=== PATIENT | female | born 1990 | race Caucasian/White ===

== ENCOUNTER → 2016-07-06 | Outpatient (REF) ==
[~2016-07-06] MED LIST: BIRTH CONTROL PILLS; CIPRO 250MG TA250 MG PO; EC NAPROSYN500 MG PO; FEROSUL; KETOROLAC10 MG PO; PRILOSEC 20MG20 MG PO
== END ==
LOC: WSOH 13:10
DX: Z02.1 Encounter for pre-employment examination (principal)

== ENCOUNTER 2018-03-15 06:27 | Inpatient (IN) | payer BC ==
[~2018-03-15] VITALS: Ht 175.3 cm; Wt 105.5 kg
[2018-03-17] VITALS (46 sets, daily range): BP systolic 101–135; BP diastolic 57–94; PULSE 68–101; TEMP 97.7–99.3
[2018-03-17] MEDS ORDERED: PRIL40 PO (06:55)
[2018-03-17] MEDS ORDERED: SYNTHROID0.075 MG/T (06:55)
[2018-03-17] MEDS ORDERED: TUMS500 MG PO (06:57)
[2018-03-17] MEDS ORDERED: PRENATAL (06:57)
[2018-03-17] MEDS ORDERED: TYLENOL 500MG500 MG PO (06:57)
[2018-03-17] MEDS ORDERED: IRON TABLETS325 MG PO (06:58)
--- NOTE | 2018-03-17 07:10 | NUR ---
0710-40 Week G1 patient of Dr[address] Elizondo's ambulatory to unit for scheduled induction of labor. Spouse at side. Oriented to room Assisted into gown. Placed on EFM. Reactive FHR noted. VSS. IV to right hand. Blood collected and sent to lab. LR infusing. Assessment complete. Consents reviewed and signed. Updated on plan of care. 0748-Dr. Elizondo calls unit, see physician notification. SVE /-2. 0800-Pitocin started per protocol and MD order. Pitocin verification with ADIS Rodney. 0801-Patient up to bathroom, Voids 100ml clear yellow urine. Returns to bed WL.
[2018-03-17 08:13] LABS: BASO % 0.3 % (0.0-2.0); EOS # 0.1 (0.0-0.7); EOS % 0.7 % (0-4.0); GRAN # 5.2 (1.4-6.5); GRAN % 70.2 % (42.2-75.2); HEMATOCRIT 34.1 % (37.0-47.0); LYMPH # 1.4 (1.2-3.4); LYMPH % 18.4 % (20.0-51.0); MEAN CELL VOLUME 82 fl (80.0-100.0); MEAN CORPUSCULAR HEMOGLOBIN 26 pg (27.0-31.0); MEAN CORPUSCULAR HGB CONC 32 g/dl (33.0-37.0); MEAN PLATELET VOLUME 11.7 fl (7.4-10.4); MONO # 0.7 (0.1-0.6); MONO % 9.7 % (1.7-9.3); PLATELET COUNT 130 K/mm3 (130-400); RED BLOOD COUNT 4.16 M/mm3 (4.10-5.30); REDCELL DISTRIBUTION WIDTH-CV 19.2 % (11.5-14.5)
--- NOTE | 2018-03-17 09:30 | NUR ---
0930-Dr. Elizondo to unit, reviews FHR monitor. SVE by MD, difficulty checking cervix due to maternal discomfort. MD discusses plan of care and patients plan for pain management. Patient and MD agree to proceed with epidural before AROM. 0963-ALDAIR French notified of patients desire for epidural. IVF bolus started.
--- NOTE | 2018-03-17 10:00 | NUR ---
1000-Patient up to bathroom. Returns to bedside, sitts up for epidural placement. ALDAIR French to room. Epidural procedure discussed with SENIOR JAVA PROGRAMMER ANALYST. 1014-Single shot administered by ALDAIR French. VSS. RN remians at bedside frequently adjusting EFM. 1025-Repositioned WL. Updated on plan of care and safety. 1035-BP 101/57, maternal HR 86, asymptomatic. Repeat BP 99/56, HR 82 1043-Dr. Elizondo to room, SVE /0 AROM clear, Apple Care provided. Repositioned WL. Maternal BP 133/78, HR 86.
--- NOTE | 2018-03-17 11:00 | NUR ---
Guadalupe placed to DD, Clear yellow urine return. Apple care provided.
--- NOTE | 2018-03-17 15:50 | NUR ---
1550-SVE 7-8/100/+2, Moderate amount of bloody show. Repositioned LL with peanut ball. Difficulty tracing FHR, RN at bedside frequently readjusting EFM. 1604-Dr. white updated on SVE, see physician notification. 1615-Patient reports increased pressure, SVE 9-10/100/+2, cervix pushes passed head. Dr. White udpated, see physician notification. 1627-MD on unit. SVE complete +2 per MD coaches on pushing. 1630-MD begins pushing with patient through contraction. Patient moves vertex well. Audible FHR decel down to 110-115 with pushing. Difficulty tracing FHR, RN frequently readjusting EFM. Patient continues to push with MD through contractions. 1644-MD sets up for delivery. 1645-Spontaneous vaginal delivery of viable male attended by Dr. White. Infant to mothers abdoment. Cord clamped and cut by MD. Care of assumed by ADIS Christy. Apgars 8/9/9. 1648-Spontaneous delivery of intact placenta by MD. Fundal massage firm. Lochia WNL. EBL 300ml. Pitocin bolus per MD order and protocol. 2nd Degree perineal lac repaired by MD with 2-0. Apple care provided. Ice to perineum. Updated on plan of care and safety. VSS.
[2018-03-17] MEDS ORDERED: PERCOCET 325 MG1 TA2 PO (17:02)
[2018-03-17] MEDS ORDERED: MOTRIN 800800 MG/TAB PO (17:02)
--- NOTE | 2018-03-17 19:00 | NUR ---
0- PT ASSISTED TO BATHROOM, ABLE TO AMBULATE INDEPENDENTLY. PT ABLE TO VOID 400ML WITHOUT DIFFICULTY. PT PERFORMS PERICARE, CLEAN GOWN, PAD AND PANTIES PROVIDED. PT SLIGHTLY LIGHTHEADED SO TRANSFERRED TO WHEELCHAIR. 1929- PT TRANFERRED PER WHEELCHAIR TO ROOM 207, BELONGINGS WITH PT. PT ORIENTED TO ROOM AND CALL LIGHTS. PLAN OF CARE DISCUSSED AND QUESTIONS ANSWERED.
--- NOTE | 2018-03-17 20:15 | NUR ---
2015- PT NEEDING ASSISTANCE WITH AND HAS COMPANY AT BEDSIDE. WOULD LIKE TO WAIT FOR VITAL SIGNS UNTIL AFTER DONE NURSING. NURSE ASSISTS PT WITH LATCH AND PT WILL CALL OUT WHEN READY FOR VITAL SIGNS.
[2018-03-18 02:00] VITALS: BP 111/70; PULSE 94; TEMP 98.9
[2018-03-18 09:00] VITALS: BP 114/78; PULSE 90
--- NOTE | 2018-03-18 11:03 | NUR ---
Initial visit; Patient thanked weighter for looking in on her and offering congratulations and God's blessings for the of her son. Roller Presser Operator thanked patient for choosing [facility].
[2018-03-18 16:14] VITALS: BP 119/75; PULSE 105
[2018-03-19 07:30] VITALS: BP 111/63; PULSE 86; TEMP 98.2
== END 2018-03-19 12:00 | disposition home or self-care (01) | DRG 807 ==
LOC: LDR 03-17 06:23 → OB 03-17 19:30
PROVIDERS: ADMIT Obstetrics & Gynecology
PROC: 10E0XZZ Delivery of Products of Conception, External Approach (ICD-10-PCS; principal; 2018-03-17)
PROC: 0KQM0ZZ Repair Perineum Muscle, Open Approach (ICD-10-PCS; 2018-03-17)
PROC: 10907ZC Drainage of Amniotic Fluid, Therapeutic from Products of Conception, Via Natural or Artificial Opening (ICD-10-PCS; 2018-03-17)
PROC: 3E033VJ Introduction of Other Hormone into Peripheral Vein, Percutaneous Approach (ICD-10-PCS; 2018-03-17)
DX: O41.03X0 Oligohydramnios, third trimester, not applicable or unspecified (principal); Z37.0 Single live birth; Z3A.40 40 weeks gestation of pregnancy; O70.1 Second degree perineal laceration during delivery; O99.284 Endocrine, nutritional and metabolic diseases complicating childbirth; E03.9 Hypothyroidism, unspecified; K21.9 Gastro-esophageal reflux disease without esophagitis
CPT/HCPCS: J2590; J2795; J7120

== ENCOUNTER → 2020-04-22 | Outpatient (CLI) | payer BC ==
[~2020-04-22] MED LIST changes: +FLONASEALLERGY NS; +IRON TABLETS325 MG PO; +MOTRIN 800800 MG/TAB PO; +PERCOCET 325 MG1 TA2 PO; +PRENATAL; +PRIL40 PO; +SYNTHROID0.05 MG/TA PO; +SYNTHROID0.075 MG/T; +TUMS500 MG PO; +TYLENOL 500MG500 MG PO
== END ==
LOC: DIA.ED
DX: O24.419 Gestational diabetes mellitus in pregnancy, unspecified control (principal); E03.9 Hypothyroidism, unspecified
CPT/HCPCS: G0108

== ENCOUNTER → 2020-04-26 | Outpatient (CLI) | payer BC | LOC: DIA.ED 13:33 | DX: O24.419 Gestational diabetes mellitus in pregnancy, unspecified control (principal); E03.9 Hypothyroidism, unspecified | CPT/HCPCS: G0108 ==

== ENCOUNTER → 2020-05-12 | Outpatient (CLI) | payer BC | LOC: DIA.ED 13:29 | DX: O24.419 Gestational diabetes mellitus in pregnancy, unspecified control (principal) | CPT/HCPCS: G0108 ==

== ENCOUNTER 2020-06-24 06:14 | Inpatient (IN) | payer BC ==
[~2020-06-24] VITALS: Ht 177.8 cm; Wt 105.5 kg
[2020-06-24] VITALS (31 sets, daily range): BP systolic 84–128; BP diastolic 48–89; PULSE 69–108; TEMP 97.8–98.4
[~2020-06-24 06:14] MED LIST changes: -FLONASEALLERGY NS; -SYNTHROID0.05 MG/TA PO
[2020-06-24] MEDS ORDERED: SYNTHROID0.05 MG/TA PO (06:59)
[2020-06-24] MEDS ORDERED: FLONASEALLERGY NS (06:59)
[2020-06-24 07:11] LABS: BASO % 0.2 % (0.0-2.0); EOS # 0.1 (0.0-0.7); EOS % 0.7 % (0-4.0); GRAN # 5.8 (1.4-6.5); GRAN % 70.3 % (42.2-75.2); HEMOGLOBIN 11.4 g/dl (12.5-16.0); LYMPH # 1.6 (1.2-3.4); LYMPH % 18.8 % (20.0-51.0); MEAN CELL VOLUME 86 fl (80.0-100.0); MEAN CORPUSCULAR HEMOGLOBIN 28 pg (27.0-31.0); MEAN CORPUSCULAR HGB CONC 32 g/dl (33.0-37.0); MEAN PLATELET VOLUME 12.5 fl (7.4-10.4); MONO # 0.8 (0.1-0.6); MONO % 9.4 % (1.7-9.3); PLATELET COUNT 150 K/mm3 (130-400); RED BLOOD COUNT 4.08 M/mm3 (4.10-5.30); REDCELL DISTRIBUTION WIDTH-CV 15.8 % (11.5-14.5)
[2020-06-24 07:21] LABS: HEMATOCRIT 35.2 % (37.0-47.0)
[2020-06-25 02:00] VITALS: BP 110/62; PULSE 76; TEMP 98
[2020-06-25] MEDS ORDERED: MOTRIN 800800 MG/TAB PO (07:23)
[2020-06-25 09:00] VITALS: BP 103/54; PULSE 81; TEMP 98
== END 2020-06-25 17:45 | disposition home or self-care (01) | DRG 807 ==
LOC: LDR 06:14 → OB 10:48
PROVIDERS: ADMIT Obstetrics & Gynecology
PROC: 10E0XZZ Delivery of Products of Conception, External Approach (ICD-10-PCS; principal; 2020-06-24)
PROC: 0KQM0ZZ Repair Perineum Muscle, Open Approach (ICD-10-PCS; 2020-06-24)
PROC: 10907ZC Drainage of Amniotic Fluid, Therapeutic from Products of Conception, Via Natural or Artificial Opening (ICD-10-PCS; 2020-06-24)
PROC: 3E033VJ Introduction of Other Hormone into Peripheral Vein, Percutaneous Approach (ICD-10-PCS; 2020-06-24)
DX: O24.420 Gestational diabetes mellitus in childbirth, diet controlled (principal); Z37.0 Single live birth; O99.214 Obesity complicating childbirth; E66.9 Obesity, unspecified; O99.284 Endocrine, nutritional and metabolic diseases complicating childbirth; O99.02 Anemia complicating childbirth; D64.9 Anemia, unspecified; Z3A.39 39 weeks gestation of pregnancy; E03.9 Hypothyroidism, unspecified
CPT/HCPCS: J2590; J7120

== ENCOUNTER 2023-05-10 10:19 | Inpatient (IN) | payer BC ==
[~2023-05-10] VITALS: Ht 175.3 cm; Wt 109.1 kg
[2023-05-10] VITALS (20 sets, daily range): BP systolic 102–135; BP diastolic 54–88; PULSE 70–95; TEMP 98–98.2
[~2023-05-10 10:19] MED LIST changes: +FLONASEALLERGY NS; +SYNTHROID0.05 MG/TA PO
[2023-05-10] MEDS ORDERED: LR & Oxytocin 500 ML IV SCH (10:30)
[2023-05-10] MEDS ORDERED: LR 1,000 ML IV SCH (10:30)
--- NOTE | 2023-05-10 11:18 | NUR ---
1118 DELPHINE RUGGIERO UPDATED ON PT ARRIVAL, ADMISSION, FHTS REACTIVE, CTX PATTERN, ATTEMPTED SVE BUT RN NOT ABLE TO REACH CERVIX. ORDERS GIVEN TO START PITOCIN AT THIS TIME 2 X 2 X 15. RN ELINAVO
[2023-05-10 11:36] LABS: BASO % 0.3 % (0.0-2.0); EOS % 0.5 % (0.0-4.0); GRAN # 4.6 K/mm3 (1.4-6.5); GRAN % 71.9 % (42.2-75.2); HEMOGLOBIN 10.8 g/dl (12.5-16.0); LYMPH # 1.2 K/mm3 (1.2-3.4); LYMPH % 19.5 % (20.0-51.0); MEAN CELL VOLUME 87 fl (80.0-100.0); MEAN CORPUSCULAR HEMOGLOBIN 28 pg (27-31); MEAN CORPUSCULAR HGB CONC 32 g/dl (33.0-37.0); MEAN PLATELET VOLUME 12.4 fl (7.4-10.4); MONO # 0.5 K/mm3 (0.1-0.6); MONO % 7.2 % (1.7-9.3); PLATELET COUNT 121 K/mm3 (130-400); RED BLOOD COUNT 3.83 M/mm3 (4.10-5.30)
[2023-05-10 11:48] LABS: HEMATOCRIT 33.4 % (37.0-47.0)
--- NOTE | 2023-05-10 12:22 | NUR ---
1212 DELPHINE RUGGIERO BEDSIDE; DISCUSSING POC WITH PT. VISUALIZES STRIP 1215 AROM BY DELPHINE RUGGIERO. SVE 3-4 CM/80/-2. CLEAR FLUID 1216 DELPHINE RUGGIERO OUT OF ROOM
--- NOTE | 2023-05-10 12:23 | NUR ---
1217 MAN QUINTEROS CALLED, INFORMED PT REQUESTING EPIDURAL AT THIS TIME. IVFB STARTED. PATTERN CHAIN BUILDER STATES HE WILL BE BEDSIDE SHORTLY.
[2023-05-10] MEDS ORDERED: ROPivacaine PF 0.2% 200 ML IV ONE (12:30)
--- NOTE | 2023-05-10 13:13 | NUR ---
RN AND VET ASSISTANT BEDSIDE DURING EPIDURAL PLACEMENT. PT TOLERATED PROCEDURE WELL
[2023-05-10] MEDS ORDERED: Acetaminophen 500 MG TAB PO PRN (15:45)
[2023-05-10] MEDS ORDERED: Magnes Hydrox (MOM) 80 MG/ML 30 ML CUP PO PRN (15:45)
[2023-05-10] MEDS ORDERED: Naloxone 0.4 MG/ML VIAL IV PRN (15:45)
[2023-05-10] MEDS ORDERED: Loratadine 10 MG TAB PO PRN (15:45)
[2023-05-10] MEDS ORDERED: Witch Hazel 50% Pads Bulk TUB TP PRN (15:45)
[2023-05-10] MEDS ORDERED: Phenylephrine/Mineral Oil/Petrolatum 57 GM TUBE RC PRN (15:45)
[2023-05-10] MEDS ORDERED: Measles/Mumps/Rubella Virus Vaccine Live w Diluent 0.5 ML VIAL SQ SCH (15:45)
[2023-05-10] MEDS ORDERED: oxyCODONE 5 MG TAB PO PRN (15:45)
[2023-05-10] MEDS ORDERED: Mag/Al Hydrox/Simeth Susp 30 ML CUP PO PRN (15:45)
--- NOTE | 2023-05-10 16:03 | NUR ---
1522 DELPHINE RUGGIERO NOTIFIED OF IVETT STEVE MD STATES SHE WILL BE BEDSIDE SHORTLY FOR DELIVERY 1526 DELPHINE RUGGIERO BEDSIDE, PT LEGS UP IN [facility] 1528 VIABLE MALE DELIVERED VAGINALLY BY DELPHINE RUGGIERO
[2023-05-10] MEDS ORDERED: Ibuprofen 800 MG TAB PO SCH (16:30)
[2023-05-10] MEDS ORDERED: Sennosides/Docusate 8.6-50 MG TAB PO SCH (17:00)
--- NOTE | 2023-05-10 18:25 | NUR ---
1800 RN ASSISTS PT TO BATHROOM, PT VOIDED AND MAY CARE PERFORMED. PT AMBULATES WITH STAND BY ASSIST
[2023-05-10] MEDS ORDERED: traZODone 50 MG TAB PO PRN (21:00)
[2023-05-11 02:32] VITALS: BP 111/71; PULSE 64; TEMP 98.2
[2023-05-11 07:38] VITALS: BP 123/80; PULSE 67; TEMP 98.2
[2023-05-11] MEDS ORDERED: Influenza Virus Vaccine, Quad '23-24 (6 MOS+) 0.5 ML SYRINGE IM SCH (09:00)
[2023-05-11 13:15] VITALS: BP 135/81; PULSE 70; TEMP 98.2
--- NOTE | 2023-05-11 17:48 | NUR ---
ALL DC PAPERWORK REVIEWED AND UNDERSTOOD AT THIS TIME. PT DENIES FURTHER QUESTION OR CONCERNS. ALL BELONGINGS ACCOUNTED FOR.
== END 2023-05-11 18:04 | disposition home or self-care (01) | DRG 807 ==
LOC: LDR 10:19 → OB 18:49
PROVIDERS: ADMIT Obstetrics & Gynecology
PROC: 10E0XZZ Delivery of Products of Conception, External Approach (ICD-10-PCS; principal; 2023-05-10)
PROC: 10907ZC Drainage of Amniotic Fluid, Therapeutic from Products of Conception, Via Natural or Artificial Opening (ICD-10-PCS; 2023-05-10)
PROC: 0HQ9XZZ Repair Perineum Skin, External Approach (ICD-10-PCS; 2023-05-10)
PROC: 3E033VJ Introduction of Other Hormone into Peripheral Vein, Percutaneous Approach (ICD-10-PCS; 2023-05-10)
DX: O99.12 Other diseases of the blood and blood-forming organs and certain disorders involving the immune mechanism complicating childbirth (principal); Z37.0 Single live birth; D69.59 Other secondary thrombocytopenia; K21.9 Gastro-esophageal reflux disease without esophagitis; O99.62 Diseases of the digestive system complicating childbirth; O99.284 Endocrine, nutritional and metabolic diseases complicating childbirth; E03.9 Hypothyroidism, unspecified; O70.0 First degree perineal laceration during delivery; O69.81X0 Labor and delivery complicated by cord around neck, without compression, not applicable or unspecified; O76 Abnormality in fetal heart rate and rhythm complicating labor and delivery; Z86.16 Personal history of COVID-19; Z3A.39 39 weeks gestation of pregnancy; Z79.890 Hormone replacement therapy; Z23 Encounter for immunization
CPT/HCPCS: J2590; J2795; J7120